=== PATIENT | female | born 1990 | race Caucasian/White ===

== ENCOUNTER 2021-06-10 13:36 | Emergency (ER) | payer OTHER ==
[~2021-06-10] VITALS: Ht 167.6 cm; Wt 86.3 kg
[2021-06-10 14:06] LABS: BILIRUBIN,URINE NEGATIVE (NEG); CLARITY,URINE CLOUDY; COLOR,URINE YELLOW
[2021-06-10 14:07] LABS: NITRITE,URINE POSITIVE (NEG); PROTEIN,URINE NEGATIVE (NEG-TRACE)
[2021-06-10 14:08] LABS: BACTERIA,URINE MANY /HPF (0-FEW)
[2021-06-10] MEDS ORDERED: ONDANSETRON PF 4 MG/2 ML VIAL. IVP ONE (14:15)
[2021-06-10] MEDS ORDERED: IV NORMAL SALINE 1000ML BAG 1,000 ML IV SCH (14:15)
[2021-06-10 14:17] LABS: BARBITURATES NEG (NEG); BENZODIAZEPINES NEG (NEG); CANNABINOIDS NEG (NEG); COCAINE NEG (NEG); METHADONE NEG (NEG); OPIATES NEG (NEG); PHENCYCLIDINE NEG (NEG)
--- NOTE | 2021-06-10 14:18 | PHYS DOC ---
Past Medical History Additional Past Medical Histor: PTSD,DEPRESSION Past Surgical History: Other Additional Past Surgical Histo: GASTROSTOMY SLEEVE Smoking Status: Unknown if ever smoked Alcohol Use: None General Adult EDM: Chief Complaint: NAUSEA/VOMITING/DIARRHEA HPI: HPI: Patient is a 30 year old female who presents with on June 07 patient [facility] and alcohol abuse. She states that at that time she was having intermittent racing heartbeat with some nausea and vomiting. She states she can no not hardly keep anything down and is still having a racing heartbeat and when it happened today she passed out. She states she is also noticing that at times her hands and her feet will swell. Patient states she is just feeling not well. She states that [facility] sent her here to be checked out. She denies abdominal pain, fever, shortness of breath, chest pain, numbness or tingling, vision change, focal weakness. Patient has a history of amphetamine and alcohol abuse, PTSD, depression and a gastric sleeve. Review of Systems: Review of Systems: Constitutional: Denies fever or +chills. [] Eyes: Denies change in visual acuity. [] HENT: Denies nasal congestion or sore throat. [] Respiratory: Denies cough or shortness of breath. [] Cardiovascular: Denies chest pain or edema. + Tachycardia [] GI: Denies abdominal pain, +nausea, +vomiting, denies bloody stools or diarrhea. [] : Denies dysuria. [] Musculoskeletal: Denies back pain or joint pain. [] Integument: Denies rash. [] Neurologic: Denies headache, focal weakness or sensory changes. + Syncope [] Endocrine: Denies polyuria or polydipsia. [] Lymphatic: Denies swollen glands. [] Psychiatric: Denies depression or anxiety. [] Heart Score: C/O Chest Pain: No HEART Score for Chest Pain: HEART Score for Chest Pain Response (Comments) Value History Slighlty/Non-Suspicious 0 ECG Normal 0 Age < 45 0 Risk Factors 1 or 2 Risk Factors 1 Troponin < Normal Limit 0 Total 1 Risk Factors: Risk Factors: DM, Current or recent (<one month) smoker, HTN, HLP, family history of CAD, obesity. Risk Scores: Score 0 - 3: 2.5% MACE over next 6 weeks - Discharge Home Score 4 - 6: 20.3% MACE over next 6 weeks - Admit for Clinical Observation Score 7 - 10: 72.7% MACE over next 6 weeks - Early Invasive Strategies Current Medications: Current Medications Medications (Trade) Dose Ordered Sig/Noris Start Time Stop Time Status Last Admin Dose Admin Ondansetron HCl (Zofran) 4 mg 1X ONCE 06/10/21 14:15 06/10/21 14:16 UNV Sodium Chloride 1,000 ml @ 1,000 mls/hr Q1H 06/10/21 14:15 06/10/21 15:14 UNV Allergies: Allergies: Allergies Coded Allergies Type Severity Reaction Last Updated Verified No Known Drug Allergies 06/10/21 No Physical Exam: PE: Constitutional: Well developed, well nourished, no acute distress, non-toxic appearance. [] HENT: Normocephalic, atraumatic, bilateral external ears normal, oropharynx moist, no oral exudates, nose normal. [] Eyes: PERRLA, EOMI, conjunctiva normal, no discharge. [] Neck: Normal range of motion, no tenderness, supple, no stridor. [] Cardiovascular:Heart rate regular tachycardia rhythm, no murmur [] Lungs & Thorax: Bilateral breath sounds clear to auscultation [] Abdomen: Bowel sounds normal, soft, no tenderness, no masses, no pulsatile masses. [] Skin: Warm, dry, no erythema, no rash. [] Back: No tenderness, no CVA tenderness. [] Extremities: No tenderness, no cyanosis, no clubbing, ROM intact, no edema. [] Neurologic: Alert and oriented X 3, normal motor function, normal sensory function, no focal deficits noted. [] Psychologic: Affect normal, judgement normal, mood normal. [] Current Patient Data: Labs: Laboratory Tests Test 06/10/21 13:50 06/10/21 13:58 Urine Collection Type Unknown Urine Color Yellow Urine Clarity Cloudy Urine pH 6.0 (<5.0-8.0) Urine Specific [place] 1.025 (1.000-1.030) Urine Protein Negative mg/dL (NEG-TRACE) Urine Glucose (UA) 500 mg/dL (NEG) Urine Ketones (Stick) Negative mg/dL (NEG) Urine Blood Trace (NEG) Urine Nitrite Positive (NEG) Urine Bilirubin Negative (NEG) Urine Urobilinogen Dipstick 1.0 mg/dL (0.2 mg/dL) Urine Leukocyte Esterase Small (NEG) Urine RBC 1-2 /HPF (0-2) Urine WBC 11-20 /HPF (0-4) Urine Squamous Epithelial Cells Few /LPF Urine Bacteria Many /HPF (0-FEW) Urine Mucus Slight /LPF POC Urine HCG, Qualitative Hcg negative (Negative) Vital Signs: Vital Signs Date Time Temp Pulse Resp B/P (MAP) Pulse Ox O2 Delivery O2 Flow Rate FiO2 06/10/21 13:55 97.0 102 20 145/65 (91) 99 Room Air 97.0 EKG: EK read by Dr. Smith is a sinus rhythm and no STEMI Radiology/Procedures: Radiology/Procedures: [] Impression: [place] [address] IMAGING REPORT Signed PATIENT: PAL CUELLARCOUNT: [id number] : 1990 LOCATION: ER AGE: 30 SEX: F EXAM STATUS: REG ER ORD. PHYSICIAN: RIOS LEE APRN REASON: racing heart,IV AND EKG NOT READY,ALSO CT PROCEDURE: PORTABLE CHEST 1V EXAMINATION: XR CHEST 1V CLINICAL HISTORY: Tachycardia. EXAM DATE/TIME: 06/10/2021 3:08 PM COMPARISON: None FINDINGS: Lines, Tubes, and Devices: None. Cardiomediastinal Silhouette: Within normal limits. Lungs and Pleura: No evidence of focal airspace consolidation or pleural effusion. Pulmonary vasculature unremarkable. Bones and Soft Tissues: No acute osseous abnormality. IMPRESSION: No evidence of acute cardiopulmonary abnormality. Electronically signed by: rUiel Nicolas DO (06/10/2021 3:12 PM) [id number] DICTATED and SIGNED BY: URIEL NICOLAS DO DATE: 06/10/21 [id number] [id number] IMAGING REPORT Signed PATIENT: PAL CUELLAR MACCOUNT: [id number] : 1990 LOCATION: ER AGE: 30 SEX: F EXAM STATUS: REG ER ORD. PHYSICIAN: RIOS LEE APRN REASON: syncope, chest tightness, vomiting, chills PROCEDURE: CT ANGIO CHEST W ABD PEL W/ PQRS Compliance Statement: One or more of the following individualized dose reduction techniques were utilized for this examination: 1. Automated exposure control 2. Adjustment of the mA and/or kV according to patient size 3. Use of iterative reconstruction technique CTA CHEST_ABDOMEN_AND PELVIS Clinical Indication: Reason: syncope, chest tightness, vomiting, chills / Spl. Instructions: [id number] 100ml [phone] / History: Comparison: None. Technique: Helical CT imaging of the chest, abdomen, and pelvis is performed after 100 cc of Omnipaque [address] angiogram protocol. 3-D MIP reconstructions of the aorta. Findings: There is no aortic dissection. Great vessels are normal caliber. There is no pulmonary embolus. Residual thymus in the anterior mediastinum. There is no adenopathy in the chest. There are subcentimeter bilateral hilar lymph nodes. The cardiac size is normal, no pericardial effusion. There is no pleural abnormality. The central airways are patent. Tiny calcified granuloma right lower lobe. There is a 4 mm subpleural nodule in the posterior left lower lobe that may be due to scarring, image 90. There is post surgical change of the stomach. The abdominal aorta branches are patent. The abdominal aorta is normal caliber. 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 The liver, gallbladder, spleen, pancreas, adrenal glands,, and kidneys are normal. There is no dilated small bowel. The appendix is normal. There is no colon wall thickening. No abdominal adenopathy or free fluid. Uterus is anteverted. The urinary bladder is normal, mostly decompressed. Ovaries not well seen. No pelvic free fluid is seen. No acute bone abnormality. IMPRESSION: 1. No aortic dissection or pulmonary embolus. 2. No acute abdominal or pelvic abnormality. Electronically signed by: Dar Mcintosh MD (06/10/2021 3:24 PM) [id number] DICTATED and SIGNED BY: DAR MCINTOSH MD DATE: 06/10/21 [id number] [facility] [address] [place] [address] IMAGING REPORT Signed PATIENT: PAL CUELLARCOUNT: [id number] : 1990 LOCATION: ER AGE: 30 SEX: F EXAM STATUS: REG ER ORD. PHYSICIAN: RIOS LEE APRN REASON: syncope PROCEDURE: CT HEAD AND CERVICAL SPINE WO EXAM: CT HEAD WITHOUT IV CONTRAST CLINICAL HISTORY: Reason: syncope / Spl. Instructions: / History: COMPARISON: None. TECHNIQUE: Routine CT of the head without contrast. Soft tissues and bone windows were reviewed. PQRS compliance statement - One or more of the following individualized dose reduction techniques were utilized for this study: 1. Automated exposure control 2. Adjustment of the mA and/or kV according to patient size 3. Use of iterative reconstruction technique FINDINGS: There is no evidence of hemorrhage, mass or extra-axial fluid collection. Heath-white differentiation is maintained with no evidence of edema. There is no mass effect or shift of the intracranial structures. The ventricles, basilar cisterns and cortical sulci are normal in size and configuration for the patients stated age. The cerebellum and brainstem are unremarkable. The calvarium demonstrates no evidence of fracture or focal lesion. There is normal aeration of the visualized paranasal sinuses and mastoid air cells. The visualized portions of the orbits are normal. IMPRESSION: No evidence for acute intracranial process. EXAM: CT CERVICAL SPINE WITHOUT IV CONTRAST CLINICAL HISTORY: syncope COMPARISON: None available. TECHNIQUE: Helical CT of the cervical spine was performed. Axial, coronal and sagittal reformatted images were also performed. PQRS compliance statement - One or more of the following individualized dose reduction techniques were utilized for this study: 1. Automated exposure control 2. Adjustment of the mA and/or kV according to patient size 3. Use of iterative reconstruction technique FINDINGS: Vertebral body heights are preserved. No spondylolisthesis. Intervertebral disc heights are preserved. IMPRESSION: No acute cervical spine fracture or subluxation. Electronically signed by: Ahmet Landa MD (06/10/2021 3:14 PM) FOREST DICTATED and SIGNED BY: AHMET LANDA MD DATE: 06/10/21 [id number] Course & Med Decision Making: Course & Med Decision Making Pertinent Labs and Imaging studies reviewed. (See chart for details) See HPI. Alert and oriented x4. Ambulatory steady gait. Speaks in full clear sentences. Lungs are clear to all stational lobes. Abdomen is soft and nontender. No peripheral edema. Skin pink warm and dry. Afebrile. Patient had a full work-up with no acute findings found. Blood work is unremarkable. Patient does have a UTI of which I gave her Rocephin through her IV. I will send her home on p.o. antibiotic. This is likely anxiety driven episodes. Patient is successfully p.o. challenged and states she is feeling better. [] Dragon Disclaimer: Dragon Disclaimer: This electronic medical record was generated, in whole or in part, using a voice recognition dictation system. Departure Departure Impression: Primary Impression: Racing heart beat Additional Impressions: Syncope Qualified Codes: R55 - Syncope and collapse Urinary tract infection Qualified Codes: N39.0 - Urinary tract infection, site not specified; R31.9 - Hematuria, unspecified Disposition: HOME / SELF CARE / HOMELESS Condition: STABLE Referrals: GERSON JEFF MD Patient Instructions: Anxiety and Panic Attacks, Palpitations, Syncope, Urinary Tract Infection Additional Instructions: Follow-up with primary care provider if needed. Drink plenty of fluids. Continue taking all your medications as prescribed. Take all your medication as prescribed today with food. Scripts Ondansetron (ONDANSETRON ODT) 4 Mg Tab.rapdis 1 TAB PO PRN Q6-8HRS PRN for NAUSEA, #16 TAB Prov: RIOS LEE EDITOR MANAGING DIRECTOR 06/10/21 Cefdinir (CEFDINIR) 300 Mg Capsule 1 CAP PO BID for 10 Days, #20 CAP Prov: RIOS LEE EDITOR MANAGING DIRECTOR 06/10/21 RIOS LEE APRN Jun 10, 2021 14:18
[2021-06-10 14:25] LABS: AMPHETAMINE/METHAMPHETAMINE POS (NEG)
--- NOTE | 2021-06-10 14:28 | EKG ---
[facility] [address] [place] [address] Test Date: 2021-06-10 Test Time: 14:13:42 Pat Name: PAL CUELLAR Department: Room: Gender: F Credit Rating Checker: : 1990 Requested By: RIOS LEE Order Number: [id number] Reading MD: Kristofer Leslie Measurements Intervals [place] Rate: 95 P: 29 MO: 148 QRS: 46 QRSD: 90 T: 10 QT: 288 QTc: 365 Interpretive Statements SINUS RHYTHM NORMAL ECG RI6.02 No previous ECG available for comparison Electronically Signed On 06-12-2021 18:45:07 BOXING INSPECTOR by Kristofer Leslie
[2021-06-10] MEDS ORDERED: cefTRIAXone IV Push 1 GM VIAL. IVP ONE (14:30)
[2021-06-10 14:39] LABS: BASO # 0.1 x10^3/uL (0.0-0.2); BASO % 1 % (0-3); EOS # 0.1 x10^3/uL (0.0-0.7); EOS % 1 % (0-3); HEMATOCRIT 28.6 % (36.0-47.0); HEMOGLOBIN 9.1 g/dL (12.0-15.5); LYMPH # 2.2 x10^3/uL (1.0-4.8); LYMPH % 23 % (24-48); MEAN CORPUSCULAR HEMOGLOBIN 22 pg (25-35); MEAN CORPUSCULAR HGB CONC 32 g/dL (31-37); MEAN CORPUSCULAR VOLUME 70 fL (79-100); MONO # 0.8 x10^3/uL (0.0-1.1); MONO % 8 % (0-9); NEUT # 6.5 x10^3/uL (1.8-7.7); NEUT % 67 % (31-73); PLATELET COUNT 411 x10^3/uL (140-400); RED BLOOD COUNT 4.07 x10^6/uL (3.50-5.40); RED CELL DISTRIBUTION WIDTH 17.3 % (11.5-14.5); WHITE BLOOD COUNT 9.8 x10^3/uL (4.0-11.0)
[2021-06-10 14:45] LABS: CALCIUM 8.6 mg/dL (8.5-10.1); CREATININE 0.9 mg/dL (0.6-1.0); POTASSIUM 3.6 mmol/L (3.5-5.1)
[2021-06-10 14:51] LABS: ALBUMIN 3.1 g/dL (3.4-5.0); ALBUMIN/GLOBULIN RATIO 0.7 (1.0-1.7); INFLUENZA A PATIENT NEGATIVE (NEGATIVE); INFLUENZA B PATIENT NEGATIVE (NEGATIVE); TOTAL BILIRUBIN 0.3 mg/dL (0.2-1.0); TOTAL PROTEIN 7.4 g/dL (6.4-8.2)
[2021-06-10] MEDS ORDERED: IOHEXOL 350 MG/ML 100 ML VIAL. IV ONE (15:00)
[2021-06-10] MEDS ORDERED: CONTRAST GIVEN. MC PRN (15:00)
--- NOTE | 2021-06-10 15:14 | RAD ---
EXAMINATION: XR CHEST 1V CLINICAL HISTORY: Tachycardia. EXAM DATE/TIME: 06/10/2021 3:08 PM COMPARISON: None FINDINGS: Lines, Tubes, and Devices: None. Cardiomediastinal Silhouette: Within normal limits. Lungs and Pleura: No evidence of focal airspace consolidation or pleural effusion. Pulmonary vasculat ure unremarkable. Bones and Soft Tissues: No acute osseous abnormality. IMPRESSION: No evidence of acute cardiopulmonary abnormality. Electronically signed by: Uriel Page DO (06/10/2021 3:12 PM) [id number]
--- NOTE | 2021-06-10 15:16 | RAD ---
EXAM: CT HEAD WITHOUT IV CONTRAST CLINICAL HISTORY: Reason: syncope / Spl. Instructions: / History: COMPARISON: None. TECHNIQUE: Routine CT of the head without contrast. Soft tissues and bone windows were reviewed. PQRS compliance statement - One or more of the following individualized dose reduction techniques wer e utilized for this study: 1. Automated exposure control 2. Adjustment of the mA and/or kV according to patient size 3. Use of iterative reconstruction technique FINDINGS: There is no evidence of hemorrhage, mass or extra-axial fluid collection. Heath-white differentiation is maintained with no evidence of edema. There is no mass effect or shift of the intracranial structures. The ventricles, basilar cisterns and cortical sulci are normal in size and configuration for the marck ents stated age. The cerebellum and brainstem are unremarkable. The calvarium demonstrates no evidence of fracture or focal lesion. There is normal aeration of the visualized paranasal sinuses and mastoid air cells. The visualized portions of the orbits are normal. IMPRESSION: No evidence for acute intracranial process. EXAM: CT CERVICAL SPINE WITHOUT IV CONTRAST CLINICAL HISTORY: syncope COMPARISON: None available. TECHNIQUE: Helical CT of the cervical spine was performed. Axial, coronal and sagittal reformatted im ages were also performed. PQRS compliance statement - One or more of the following individualized dose reduction techniques wer e utilized for this study: 1. Automated exposure control 2. Adjustment of the mA and/or kV according to patient size 3. Use of iterative reconstruction technique FINDINGS: Vertebral body heights are preserved. No spondylolisthesis. Intervertebral disc heights are preserved. IMPRESSION: No acute cervical spine fracture or subluxation. Electronically signed by: Ahmet Burris MD (06/10/2021 3:14 PM) FOREST
[2021-06-10 15:25] LABS: ANISOCYTOSIS SLIGHT; HYPOCHROMIA PRESENT; MICROCYTOSIS MOD; PLT ESTIMATE INCREASED (ADEQUATE)
--- NOTE | 2021-06-10 15:26 | RAD ---
PQRS Compliance Statement: One or more of the following individualized dose reduction techniques were utilized for this examinat ion: 1. Automated exposure control 2. Adjustment of the mA and/or kV according to patient size 3. Use of iterative reconstruction technique CTA CHEST_ABDOMEN_AND PELVIS Clinical Indication: Reason: syncope, chest tightness, vomiting, chills / Spl. Instructions: [id number] 100ml [phone] / History: Comparison: None. Technique: Helical CT imaging of the chest, abdomen, and pelvis is performed after 100 cc of Omnipaqu e [address] angiogram protocol. 3-D MIP reconstructions of the aorta. Findings: There is no aortic dissection. Great vessels are normal caliber. There is no pulmonary embolus. Resid ual thymus in the anterior mediastinum. There is no adenopathy in the chest. There are subcentimeter bilateral hilar lymph nodes. The cardiac size is normal, no pericardial effusion. There is no pleural abnormality. The central airways are patent. Tiny calcified granuloma right lower lobe. There is a 4 mm subpleural nodule in the posterior left lower lobe that may be due to scarring , image 90. There is post surgical change of the stomach. The abdominal aorta branches are patent. The abdominal aorta is normal caliber. 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 The liver, gallbladder, spleen, pancreas, adrenal glands,, and kidneys are normal. There is no dilated small bowel. The appendix is normal. There is no colon wall thickening. No abdomi nal adenopathy or free fluid. Uterus is anteverted. The urinary bladder is normal, mostly decompressed. Ovaries not well seen. No p elvic free fluid is seen. No acute bone abnormality. IMPRESSION: 1. No aortic dissection or pulmonary embolus. 2. No acute abdominal or pelvic abnormality. Electronically signed by: Dar Mcintosh MD (06/10/2021 3:24 PM) [id number]
[2021-06-10 15:39] VITALS: BP 120/67
[2021-06-10] MEDS ORDERED: CEFD300C PO (16:11)
[2021-06-10] MEDS ORDERED: ONDA4TAB12 PO (16:12)
== END 2021-06-10 16:23 | disposition home or self-care (01) ==
LOC: ER 13:36
DX: N39.0 Urinary tract infection, site not specified (principal); R31.9 Hematuria, unspecified; Z20.822 Contact with and (suspected) exposure to COVID-19; R00.2 Palpitations; R55 Syncope and collapse; F43.10 Post-traumatic stress disorder, unspecified; F32.9 Major depressive disorder, single episode, unspecified
CPT/HCPCS: 36415; 70450; 71045; 71275; 72125; 74177; 80053; 80307; 81001; 81025; 83690; 83735; 83880; 84443; 84481; 84484; 85025; 87077; 87086; 87186; 87428; 87491; 87591; 93005; 96361; 96374; 96375; 99285; J0696; J2405; J7030; Q9967

== ENCOUNTER 2021-07-12 19:56 | Emergency (ER) | payer OTHER ==
[~2021-07-12] VITALS: Ht 167.6 cm; Wt 81.8 kg
[~2021-07-12 19:56] MED LIST: CEFD300C PO; ONDA4TAB12 PO
[2021-07-12 21:28] LABS: BASO # 0.1 x10^3/uL (0.0-0.2); BASO % 1 % (0-3); EOS # 0.1 x10^3/uL (0.0-0.7); EOS % 2 % (0-3); HEMATOCRIT 31.7 % (36.0-47.0); HEMOGLOBIN 9.8 g/dL (12.0-15.5); LYMPH # 2.2 x10^3/uL (1.0-4.8); LYMPH % 31 % (24-48); MEAN CORPUSCULAR HEMOGLOBIN 22 pg (25-35); MEAN CORPUSCULAR HGB CONC 31 g/dL (31-37); MEAN CORPUSCULAR VOLUME 70 fL (79-100); MONO # 0.5 x10^3/uL (0.0-1.1); MONO % 8 % (0-9); NEUT # 4.2 x10^3/uL (1.8-7.7); NEUT % 59 % (31-73); PLATELET COUNT 282 x10^3/uL (140-400); RED BLOOD COUNT 4.56 x10^6/uL (3.50-5.40); RED CELL DISTRIBUTION WIDTH 18.4 % (11.5-14.5); WHITE BLOOD COUNT 7.1 x10^3/uL (4.0-11.0)
[2021-07-12] MEDS ORDERED: ONDANSETRON PF 4 MG/2 ML VIAL. IVP ONE (21:30)
[2021-07-12] MEDS ORDERED: IV NORMAL SALINE 1000ML BAG 1,000 ML IV ONE (21:30)
[2021-07-12 21:39] LABS: CALCIUM 9.2 mg/dL (8.5-10.1); CREATININE 0.8 mg/dL (0.6-1.0); GFR 84.8; POTASSIUM 3.8 mmol/L (3.5-5.1)
[2021-07-12 21:45] LABS: ALBUMIN 3.5 g/dL (3.4-5.0); ALBUMIN/GLOBULIN RATIO 0.9 (1.0-1.7); MAGNESIUM 1.8 mg/dL (1.8-2.4); TOTAL BILIRUBIN 0.4 mg/dL (0.2-1.0); TOTAL PROTEIN 7.4 g/dL (6.4-8.2)
--- NOTE | 2021-07-12 21:54 | RAD ---
Exam: Chest one view INDICATION: Dizziness TECHNIQUE: Frontal view of the chest Comparisons: 06/10/2021 FINDINGS: The cardiomediastinal silhouette and pulmonary vessels are within normal limits. The lung and pleural spaces are clear. IMPRESSION: No acute cardiopulmonary process. Electronically signed by: Brett Henderson MD (07/12/2021 9:51 PM) [id number]
[2021-07-12 22:00] LABS: ANISOCYTOSIS SLIGHT; HYPOCHROMIA MOD; MICROCYTOSIS SLIGHT; PLT ESTIMATE ADEQUATE (ADEQUATE)
[2021-07-12 22:45] LABS: BARBITURATES NEG (NEG); BENZODIAZEPINES NEG (NEG); CANNABINOIDS POS (NEG); COCAINE NEG (NEG); METHADONE NEG (NEG); OPIATES NEG (NEG); PHENCYCLIDINE NEG (NEG)
[2021-07-12 22:46] LABS: AMPHETAMINE/METHAMPHETAMINE POS (NEG)
[2021-07-12 23:16] LABS: BACTERIA,URINE FEW /HPF (0-FEW); WBC,URINE TNTC /HPF (0-4)
[2021-07-13] MEDS ORDERED: CEFD300C PO (00:38)
[2021-07-13] MEDS ORDERED: ONDA4TAB12 PO (00:38)
--- NOTE | 2021-07-13 00:38 | PHYS DOC ---
Past Medical History Past Medical History: Anxiety, Depression Additional Past Medical Histor: PTSD,DEPRESSION Past Surgical History: No Surgical History Additional Past Surgical Histo: GASTROSTOMY SLEEVE Smoking Status: Current Some Day Smoker Alcohol Use: Occasionally Social History Narrative: PT REPORTING FORMER IV DRUG USER General Adult EDM: Chief Complaint: MULTIPLE COMPLAINTS HPI: HPI: Patient is a 30 year old female with a history of anxiety presented to the ED today to be evaluated after taking Suboxone unknown dose yesterday from a d. Patient states she was supposed to start a new job today. She states she is very anxious and took Suboxone yesterday from a friend. She states she feels nauseated, sleepy, and had some chest pressure today but no chest pain. Review of Systems: Review of Systems: Constitutional: Denies fever or chills. [] Eyes: Denies change in visual acuity. [] HENT: Denies nasal congestion or sore throat. [] Respiratory: Denies cough or shortness of breath. [] Cardiovascular: Reports chest pressure. Denies chest pain GI: Reports nausea. Denies abdominal pain,vomiting, bloody stools or diarrhea. [] : Denies dysuria. [] Musculoskeletal: Denies back pain or joint pain. [] Integument: Denies rash. [] Neurologic: Reports being sleepy. Denies headache, focal weakness or sensory changes. [] Psychiatric: Denies depression or anxiety. [] Heart Score: C/O Chest Pain: Yes HEART Score for Chest Pain: HEART Score for Chest Pain Response (Comments) Value History Slighlty/Non-Suspicious 0 ECG Normal 0 Age < 45 0 Risk Factors No Risk Factors 0 Troponin < Normal Limit 0 Total 0 Risk Factors: Risk Factors: DM, Current or recent (<one month) smoker, HTN, HLP, family history of CAD, obesity. Risk Scores: Score 0 - 3: 2.5% MACE over next 6 weeks - Discharge Home Score 4 - 6: 20.3% MACE over next 6 weeks - Admit for Clinical Observation Score 7 - 10: 72.7% MACE over next 6 weeks - Early Invasive Strategies Current Medications: Current Medications Medications (Trade) Dose Ordered Sig/Noris Start Time Stop Time Status Last Admin Dose Admin Ondansetron HCl (Zofran) 4 mg 1X ONCE 07/12/21 21:30 4/11/22 21:31 DC 07/12/21 21:27 4 MG Sodium Chloride 1,000 ml @ 1,000 mls/hr 1X ONCE 07/12/21 21:30 07/12/21 22:29 DC 07/12/21 21:28 1,000 MLS/HR Allergies: Allergies: Allergies Coded Allergies Type Severity Reaction Last Updated Verified No Known Drug Allergies 06/10/21 No Physical Exam: PE: Constitutional: Well developed, well nourished, no acute distress, non-toxic appearance. [] HENT: Normocephalic, atraumatic, bilateral external ears normal, oropharynx moist, no oral exudates, nose normal. [] Eyes: PERRLA, EOMI, conjunctiva normal, no discharge. [] Neck: Normal range of motion, no tenderness, supple, no stridor. [] Cardiovascular:Heart rate regular rhythm, no murmur [] Lungs & Thorax: Bilateral breath sounds clear to auscultation [] Abdomen: Bowel sounds normal, soft, no tenderness, no masses, no pulsatile masses. [] Skin: Warm, dry, no erythema, no rash. [] Back: No tenderness, no CVA tenderness. [] Extremities: No tenderness, no cyanosis, no clubbing, ROM intact, no edema. [] Neurologic: Sleepy on and off but alert and oriented X 3, normal motor function, normal sensory function, no focal deficits noted. [] Psychologic: Flat affect Current Patient Data: Labs: Laboratory Tests Test 07/12/21 21:18 07/12/21 22:25 White Blood Count 7.1 x10^3/uL (4.0-11.0) Red Blood Count 4.56 x10^6/uL (3.50-5.40) Hemoglobin 9.8 g/dL (12.0-15.5) L Hematocrit 31.7 % (36.0-47.0) L Mean Corpuscular Volume 70 fL (79-100) L Mean Corpuscular Hemoglobin 22 pg (25-35) L Mean Corpuscular Hemoglobin Concent 31 g/dL (31-37) Red Cell Distribution Width 18.4 % (11.5-14.5) H Platelet Count 282 x10^3/uL (140-400) Neutrophils (%) (Auto) 59 % (31-73) Lymphocytes (%) (Auto) 31 % (24-48) Monocytes (%) (Auto) 8 % (0-9) Eosinophils (%) (Auto) 2 % (0-3) Basophils (%) (Auto) 1 % (0-3) Neutrophils # (Auto) 4.2 x10^3/uL (1.8-7.7) Lymphocytes # (Auto) 2.2 x10^3/uL (1.0-4.8) Monocytes # (Auto) 0.5 x10^3/uL (0.0-1.1) Eosinophils # (Auto) 0.1 x10^3/uL (0.0-0.7) Basophils # (Auto) 0.1 x10^3/uL (0.0-0.2) Platelet Estimate Adequate (ADEQUATE) Hypochromasia Mod Anisocytosis Slight Microcytosis Slight Sodium Level 141 mmol/L (136-145) Potassium Level 3.8 mmol/L (3.5-5.1) Chloride Level 102 mmol/L (98-107) Carbon Dioxide Level 30 mmol/L (21-32) Anion Gap 9 (6-14) Blood Urea Nitrogen 12 mg/dL (7-20) Creatinine 0.8 mg/dL (0.6-1.0) Estimated GFR (Cockcroft-Gault) 84.8 BUN/Creatinine Ratio 15 (6-20) Glucose Level 116 mg/dL (70-99) H Calcium Level 9.2 mg/dL (8.5-10.1) Magnesium Level 1.8 mg/dL (1.8-2.4) Total Bilirubin 0.4 mg/dL (0.2-1.0) Aspartate Amino Transferase (AST) 15 U/L (15-37) Alanine Aminotransferase (ALT) 17 U/L (14-59) Alkaline Phosphatase 71 U/L (46-116) Troponin I High Sensitivity 5 ng/L (4-50) Total Protein 7.4 g/dL (6.4-8.2) Albumin 3.5 g/dL (3.4-5.0) Albumin/Globulin Ratio 0.9 (1.0-1.7) L Ethyl Alcohol Level < 10 mg/dL (0-10) Urine Collection Type Unknown Urine Color (Auto) Yellow Urine Turbidity Hazy Urine pH (Auto) 5.5 (<5.0-8.0) Urine Specific [place] 1.021 (1.000-1.030) Urine Protein (Auto) 100 mg/dL (Negative) Urine Glucose (Auto)(UA) Negative mg/dL (Negative) Urine Ketones (Auto) Negative mg/dL (Negative) Urine Blood (Auto) Moderate (Negative) Urine Nitrite Negative (Negative) Urine Bilirubin (Auto) Negative (Negative) Urine Urobilinogen (Auto) 2 mg/dL (Normal) Urine Leukocyte Esterase (Auto) Large (Negative) Urine RBC 6-10 /HPF (0-2) Urine WBC Tntc /HPF (0-4) Urine Squamous Epithelial Cells Mod /LPF Urine Bacteria Few /HPF (0-FEW) Urine Mucus Mod /LPF Urine Opiates Screen Neg (NEG) Urine Methadone Screen Neg (NEG) Urine Barbiturates Neg (NEG) Urine Phencyclidine Screen Neg (NEG) Urine Amphetamine/Methamphetamine Pos (NEG) Urine Benzodiazepines Screen Neg (NEG) Urine Cocaine Screen Neg (NEG) Urine Cannabinoids Screen Pos (NEG) Urine Ethyl Alcohol Neg (NEG) Laboratory Tests 07/12/21 21:18 Laboratory Tests 07/12/21 21:18 Vital Signs: Vital Signs Date Time Temp Pulse Resp B/P (MAP) Pulse Ox O2 Delivery O2 Flow Rate FiO2 07/12/21 20:23 98.8 81 12 138/80 (99) 100 Room Air 98.8 EKG: EK interpreted by Dr. Jones sinus bradycardia heart rate 59 no STEMI Radiology/Procedures: Radiology/Procedures: []PROCEDURE: PORTABLE CHEST 1V Exam: Chest one view INDICATION: Dizziness TECHNIQUE: Frontal view of the chest Comparisons: 06/10/2021 FINDINGS: The cardiomediastinal silhouette and pulmonary vessels are within normal limits. The lung and pleural spaces are clear. IMPRESSION: No acute cardiopulmonary process. Electronically signed by: Brett Gordon MD (07/12/2021 9:51 PM) [facility] DICTATED and SIGNED BY: BRETT GORDON MD DATE: 07/12/212150 Course & Med Decision Making: Course & Med Decision Making Pertinent Labs and Imaging studies reviewed. (See chart for details) This a 30-year-old female patient presented to the ED today to be evaluated after taking Suboxone unknown dose from a friend yesterday for anxiety. She is complaining of being sleepy, nausea, chest pressure with no chest pain. EKG is negative, high-sensitivity, CBC with normal WBC, hemoglobin 9.8 with hematocrit of 31.7, this is patient's baseline. CMP with no acute findings, u rine positive for UTI, discharged on cefdinir. UDS positive for methamphetamine use. Patient has been given IV fluids in the ED, Araceli. She is awake alert oriented walking with no issues. She is requesting to go home. She was advised not to take any bodies drugs. Encouraged to consider getting help for drug use. Dragon Disclaimer: [employer] Disclaimer: This electronic medical record was generated, in whole or in part, using a voice recognition dictation system. Departure Departure Impression: Primary Impression: Urinary tract infection Qualified Codes: N39.0 - Urinary tract infection, site not specified Additional Impression: Drug use Disposition: HOME / SELF CARE / HOMELESS Condition: STABLE Referrals: NO PCP (PCP) follow up with your doctor in 1 week Patient Instructions: Drug Abuse, FAQs, Urinary Tract Infection Additional Instructions: You were evaluated in the emergency room after taking Suboxone. We encourage you not to take anybody's medicine. Consider getting help for drug use. You have urinary tract infection, we wrote a prescription for antibiotics, take the medicine until completed. Follow-up with your doctor in 1 week. Scripts Ondansetron (ONDANSETRON ODT) 4 Mg Tab.rapdis 1 TAB PO PRN Q6-8HRS, #16 TAB Prov: YOVANNY MALDONADO LIBRARY INFORMATION TECHNICIAN 07/13/21 Cefdinir (CEFDINIR) 300 Mg Capsule 1 CAP PO BID, #14 CAP Prov: YOVANNY MALDONADO LIBRARY INFORMATION TECHNICIAN 07/13/21 YOVANNY MALDONADO LIBRARY INFORMATION TECHNICIAN Jul 13, 2021 00:38
[2021-07-13 00:47] VITALS: BP 132/72
--- NOTE | 2021-07-13 04:54 | EKG ---
[facility] [address] [place] [address] Test Date: 2021-07-12 Test Time: 05:44:27 Pat Name: PAL CUELLAR Department: Room: Gender: F Glass Designer: : 1990 Requested By: YOVANNY MALDONADO Order Number: [id number] Reading MD: Kristofer Leslie Measurements Intervals Banks Rate: 59 P: 21 VT: 154 QRS: 59 QRSD: 90 T: 28 QT: 404 QTc: 404 Interpretive Statements SINUS BRADYCARDIA Electronically Signed On 07-16-2021 13:51:45 CDT by Kristofer Leslie
--- NOTE | 2021-07-15 16:49 | VNOTE ---
CALL BACK NOTE CALL BACK Microbiology 07/12/21 Urine Culture - Final, Complete Staphylococcus Aureus (Mrsa) Staphylococcus Aureus Attempted to call patient regarding her urine culture, her mailbox is full YOVANNY MALDONADO CRAYON SAWYER Jul 15, 2021 16:49
== END 2021-07-13 00:58 | disposition home or self-care (01) ==
LOC: ER 19:56
DX: N39.0 Urinary tract infection, site not specified (principal); F19.90 Other psychoactive substance use, unspecified, uncomplicated; F43.10 Post-traumatic stress disorder, unspecified; F17.200 Nicotine dependence, unspecified, uncomplicated; Z93.1 Gastrostomy status
CPT/HCPCS: 36415; 71045; 80053; 80307; 81001; 83735; 84484; 85025; 87077; 87086; 87186; 93005; 96361; 96374; 99285; G0480; J2405; J7030